=== PATIENT | female | born 1990 ===

== ENCOUNTER → 2016-04-27 | Outpatient (CLI) | payer BC | END | disposition home or self-care (01) | LOC: C.PAPS 12:47 | PROVIDERS: ATTEND Obstetrics & Gynecology | DX: Z01.419 Encounter for gynecological examination (general) (routine) without abnormal findings (principal); Z87.42 Personal history of other diseases of the female genital tract ==

== ENCOUNTER → 2017-05-09 | Outpatient (CLI) | payer OTHER | END | disposition home or self-care (01) | LOC: C.PAPS 17:13 | PROVIDERS: ATTEND Obstetrics & Gynecology | DX: Z12.4 Encounter for screening for malignant neoplasm of cervix (principal); Z11.51 Encounter for screening for human papillomavirus (HPV) ==

== ENCOUNTER → 2017-05-10 | Outpatient (CLI) | payer OTHER ==
--- NOTE | 2017-05-10 15:15 | MAMMOGRAPHY REPORT ---
ULTRASOUND OF BOTH BREASTS: 05/10/2017 CLINICAL HISTORY: 26-year-old woman recently found a new lump in her left breast at 9:00, and present s for imaging evaluation. She has a history of remote fibroadenoma excision at age 14. Family histo ry of breast cancer = grandmother. COMPARISON: No prior exams were available for comparison. FINDINGS: Targeted ultrasound was performed in the area of palpable lump pointed out by the patient. On palpation, there is a firm round 1-1/2 cm mobile mass. On ultrasound, in the 9:00 left breast, 2 cm from the nipple, there is a subdermal oval parallel circumscribed hypoechoic solid mass measuring 14.3 x 4.8 x 14.0 mm. Although this most likely represents a benign fibroadenoma, definitive charac terization with ultrasound guided core biopsy is recommended. The patient also pointed out a "rash" of hypopigmented and hyperpigmented macules and patches on the chest in the cleavage area and on her back, likely representing tinea versicolor, for which a dermato logic evaluation is recommended. IMPRESSION: ACR BI-RADS CATEGORY 4: SUSPICIOUS - FOLLOW-UP RECOMMENDED 1. Ultrasound-guided core needle biopsy is recommended for a solid palpable 14.3 mm mass in the 9:00 left breast. 2. Dermatologic follow-up is recommended for the reported hypopigmented and hyperpigmented rash on t he patient's chest and back, likely representing tinea versicolor. These results and recommendations were discussed with the patient at the time of the exam. She tenta tively scheduled the left breast biopsy prior to leaving the department. Tiny Landon M.D. ay/:05/10/2017 08:59:45 Weather Algorithm Scientist: Marychuy GREGORY)(Teresa), [facility] letter sent: Abnormal 4/5 BI-RADS Code: ACR BI-RADS Category 4: Suspicious
== END | disposition home or self-care (01) ==
LOC: C.MAMM 08:24
PROVIDERS: ATTEND Obstetrics & Gynecology
DX: N63.20 Unspecified lump in the left breast, unspecified quadrant (principal); R21 Rash and other nonspecific skin eruption; Z80.3 Family history of malignant neoplasm of breast

== ENCOUNTER → 2017-05-31 | Outpatient (CLI) | payer OTHER ==
--- NOTE | 2017-05-31 09:56 | Discharge Instructions ---
Discharge Instructions Procedure Procedure Date: May 31, 2017. Reason for visit: Left Mass. Discharge Discharge Date: May 31, 2017. Discharge Diagnosis: status post breast biopsy Instructions Activity Recommendations: Additional Limitations (see below) Return to School/Work: no limitations Recommended Home Diet: No Limitations Provider Instructions: ACTIVITY RECOMMENDATIONS: * No lifting, pushing, pulling or exercising the affected side for three days. RETURN TO SCHOOL/WORK: * You may return to work/school after the procedure, but do not perform any strenuous activities for 24 to 48 hours. MEDICATIONS: * Tylenol (two 325 mg) every four to six hours if needed for mild pain (if not allergic to Tylenol). DIET: * Resume previous diet. SPECIAL CARE INSTRUCTIONS: * Keep biopsy site dry for 24 hours. May shower after 24 hours, but do not soak (bathe) incision. * May remove Tegaderm (plastic patch) tomorrow AFTER showering. * Leave the steri-strips on for one week. Allow the steri-strips to fall off by themselves. If not off after one week, you may remove them. You may place a Bandaid crosswise over the strips, if desired. * Apply ice 10 minutes on and 10 minutes off as needed. * Wear a bra at bedtime to sleep more comfortably for 2-3 days. * Your referring physician should have the results after approximately 5 to 7 business days. * Call for unusual bleeding, fever, drainage, etc or if you have any questions call during normal business hours or after hours call Dr Hutchinson, . FOLLOW UP VISIT: Follow-up with Referring Physician as scheduled. Suresh French Recommendations: Call your doctor if: * Temperature above 101 degrees * Pain not relieved by pain medicine ordered * There is increased drainage or redness from any incision * You have any unanswered questions or concerns. Your Doctors Instructions noted above were prepared by provider Lindsay Hutchinson. Patient Signature Section: Patient Instructions Signature Page Akua Westrosangela Patient (or Guardian) Signature/Date: I have read and understand the instructions given to me by my caregivers. Caregiver/RN/Doctor Signature/Date: The above-named patient and/or guardian has received patient instructions on this date. + Original Patient Signature Page (only) stays with chart. Please make copy for patient.
--- NOTE | 2017-05-31 14:57 | MAMMOGRAPHY REPORT ---
THIS REPORT HAS BEEN AMENDED. ULTRASOUND GUIDED BIOPSY LEFT BREAST: 05/31/2017 CLINICAL HISTORY: Left 9:00 breast mass. PATIENT CONSENT: The procedure, risks and benefits were discussed with the patient and informed writt en consent was obtained. A timeout was performed immediately prior to the procedure. PROCEDURE DESCRIPTION: With ultrasound guidance, aseptic technique, and lidocaine as the local anesth etic (1% lidocaine to anesthetize the skin and 1% lidocaine with epinephrine to anesthetize the deepe r tissues), the mass of concern in the left 9:00 breast was sampled 3 times with a 14-gauge Achieve b iopsy needle. Immediately thereafter, with ultrasound guidance, aseptic technique, and lidocaine as the local anesthetic, a metallic localizer clip was placed into the mass. Direct pressure was applie d to the site immediately post procedure and hemostasis was achieved. The patient tolerated the proce dure without complication. She was given wound care instructions. The specimens were sent to [facility] for analysis. COMPARISON: Comparison is made to exam dated: 05/10/2017 ultrasound - [facility]. IMPRESSION: ULTRASOUND GUIDED BIOPSY Ultrasound-guided core needle biopsy of the left 9:00 breast mass, with clip placement. The patient will receive pathology results from her referring provider. Lindsay Hutchinson M.D. ah/:05/31/2017 09:57:18 [employer]: Nina SAUER(Lanie)(Teresa), [facility] AMENDMENT: 06/01/2017 Lindsay Hutchinson M.D. Pathology results from ultrasound-guided biopsy of a left 9:00 breast mass were reviewed on 06/01/2017 . The pathology shows benign breast tissue without evidence of malignancy. Given the benign patholo gy on biopsy and given the benign morphology on ultrasound, I would recommend follow-up targeted ultr asound of the left breast in 6 months to confirm stability on imaging. Also recommend clinical follo w-up, and if the lump clinically increases in size the patient should return sooner for repeat ultras ound. Recommendations were discussed with Dr. Pierre on 06/01/2017.
== END | disposition home or self-care (01) ==
LOC: C.MAMM 09:08
PROVIDERS: ATTEND Obstetrics & Gynecology
DX: N63.20 Unspecified lump in the left breast, unspecified quadrant (principal)